=== PATIENT | female | born 1980 | race Caucasian/White ===

== ENCOUNTER 2016-06-01 23:01 | Emergency (ER) | payer OTHER ==
[2016-06-01 23:27] VITALS: TEMP 98.2; BMI 26.7
[2016-06-02 00:18] LABS: URINE APPEARANCE SLCLOUDY; URINE BILIRUBIN NEGATIVE (NEGATIVE); URINE BLOOD NEGATIVE (NEGATIVE); URINE COLOR LTYELLOW; URINE GLUCOSE (UA) NEGATIVE (NEGATIVE); URINE KETONE 1+ (NEGATIVE); URINE LEUK ESTERASE NEGATIVE (NEGATIVE); URINE NITRITE NEGATIVE (NEGATIVE); URINE UROBILINOGEN NEGATIVE E.U./dl (0.2-1.0)
[2016-06-02 00:23] LABS: URINE PROTEIN 1+ (NEGATIVE)
[2016-06-02 00:40] LABS: URINE BACTERIA MODERATE /hpf (NONE SEEN); URINE MUCUS RARE; URINE RBC <1 /hpf (0-3); URINE WBC 3 /hpf (3-5)
[2016-06-02 00:55] LABS: BASOPHIL 0.6 % (0-2.0); EOSINOPHIL 0.5 % (0-4.5); MCH 30.2 pg (25.7-33.7); MCHC 33.6 g/dl (32.0-36.0); MEAN CELL VOLUME 89.7 fl (80-96); MEAN PLT VOLUME 7.8 fl (7.5-11.1); NEUTROPHILS 74.7 % (42.8-82.8); PLATELET COUNT 303 K/MM3 (134-434); RDW 14.1 % (11.6-15.6); WHITE BLOOD COUNT 9.7 K/mm3 (4.0-10.0)
--- NOTE | 2016-06-02 01:03 | PDOC ---
History of Present Illness - General Chief Complaint: Headache Stated Complaint: Headache Time Seen by Provider: 06/01/16 23:08 History Source: Patient, Family Exam Limitations: No Limitations - History of Present Illness Initial Comments: 06/01/16 23:57 35yo Female patient with PmHx: Epilepsy presents to ED c/o blurred vision intermittently x 2 day, with today remaining constant. Patient also c/o h/a, photophobia, nausea. She states she went to see Dr. Gracia ARREDONDO from [facility] . Patient states her medications were recently increase (Lacosamide & Neurotin ER) because she had a seizure in Dr. Fagan office. She denies any recent seizures. LNMP: May 09. Dr. Fagan (Epileptologist) [phone]. Timing/Duration: reports: episodic Severity: Yes: moderate Associated Symptoms: reports: vision changes. denies: denies symptoms, confusion, fatigue, fever/chills, insomnia, loss of consciousness, muscle spasms , nausea/vomiting, numbness in legs/feet, paresthesia, ringing in ears, seizures , sleepy, slurred speech, tingling in legs/feet, trouble walking, weakness, other Past History - Travel Traveled outside of the country in the last 30 days: No Close contact w/someone who was outside of country & ill: No - Past Medical History Allergies/Adverse Reactions: Allergies Allergy/AdvReac Type Severity Reaction Status Date / Time No Known Allergies Allergy Verified 06/01/16 23:24 Home Medications: Ambulatory Orders Eslicarbazepine Acetate [Aptiom] 1,200 mg PO DAILY 06/01/16 Lacosamide [Vimpat -] 100 mg PO BID 06/01/16 Lamotrigine [Lamictal] 550 mg PO DAILY 06/01/16 Hydrocodone/Acetaminophen [[place] 5-325 Tablet] 1 each PO Q6H PRN #20 tablet MDD 4 TABS 06/02/16 Ibuprofen [Motrin -] 600 mg PO Q6H PRN #20 tablet 06/02/16 Metoclopramide HCl [Reglan -] 10 mg PO TID PRN #21 tablet 06/02/16 Seizures: Yes - Psycho/Social/Smoking Cessation Hx Suicidal Ideation: No Smoking History: Never smoked Neuro Specific PMHX - Complaint Specific PMHX Glaucoma: No Herniated Disk: No Laminectomy: No Migraine: No Multiple Sclerosis: No Neuropathy: No TIA: No Review of Systems - Review of Systems Able to Perform ROS?: Yes Is the patient limited Turkmen proficient: No Constitutional: No: Chills, Fever HEENTM: Yes: Blurred Vision. No: Double Vision, Throat Pain Respiratory: No: Cough, Orthopnea, Shortness of Breath, SOB at Rest, Stridor, Wheezing Cardiac (ROS): No: Chest Pain, Palpitations, Syncope ABD/GI: Yes: Nausea. No: Constipated, Diarrhea, Poor Appetite, Poor Fluid Intake, Vomiting : No: Burning, Dysuria, Flank Pain, Hematuria Musculoskeletal: No: Back Pain, Muscle Weakness Integumentary: No: Bruising, Erythema, Rash Neurological: Yes: Headache. No: Numbness, Paresthesia, Seizure, Tingling, Tremors, Weakness, Unsteady Gait, Ataxia, Dizziness All Other Systems: Reviewed and Negative *Physical Exam - Vital Signs Last Vital Signs Temp Pulse Resp BP Pulse Ox 98.2 F 77 18 110/69 100 06/01/16 23:26 06/01/16 23:26 06/01/16 23:26 06/01/16 23:26 06/01/16 23:26 - Physical Exam General Appearance: Yes: Nourished, Appropriately Dressed, Mild Distress. No: Apparent Distress, Moderate Distress, Severe Distress HEENT: positive: EOMI, ARASH, Normal ENT Inspection, Normal Voice, Symmetrical, TMs Normal, Pharynx Normal. negative: Tonsillar Exudate, Tonsillar Erythema, Rhinorrhea, TM Bulging, TM Dull, TM Erythema Neck: positive: Trachea midline, Supple. negative: Stridor, Lymphadenopathy (R) , Lymphadenopathy (L) Respiratory/Chest: positive: Lungs Clear, Normal Breath Sounds. negative: Respiratory Distress, Accessory Muscle Use, Labored Respiration, Rapid RR Cardiovascular: positive: Regular Rhythm, Regular Rate. negative: Edema, JVD, Murmur Gastrointestinal/Abdominal: positive: Normal Bowel Sounds, Soft. negative: Distended, Guarding, Rebound, Tenderness Musculoskeletal: positive: Normal Inspection. negative: CVA Tenderness Extremity: positive: Normal Capillary Refill, Normal Inspection, Normal Range of Motion. negative: Pedal Edema, Swelling Integumentary: positive: Normal Color, Dry, Warm. 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 NML intact, Fully Oriented, Alert, Normal Mood/ Affect, Normal Response, Motor Strength 08/25 ED Treatment Course - LABORATORY CBC & Chemistry Diagram: 06/02/16 00:30 06/02/16 00:30 - ADDITIONAL ORDERS Additional order review: Laboratory Results 06/02/16 00:01 Urine Color Ltyellow Urine Appearance Slcloudy Urine pH 7.0 Ur Specific Prim 1.024 Urine Protein 1+ H Urine Glucose (UA) Negative Urine Ketones 1+ H Urine Blood Negative Urine Nitrite Negative Urine Bilirubin Negative Urine Urobilinogen Negative Ur Leukocyte Esterase Negative Urine RBC <1 Urine WBC 3 Ur Epithelial Cells Rare Urine Bacteria Moderate Urine Mucus Rare Urine HCG, Qual Negative 06/02/16 00:30 RBC 4.08 MCV 89.7 MCHC 33.6 RDW 14.1 MPV 7.8 Neutrophils % 74.7 Lymphocytes % 17.3 Monocytes % 6.9 Eosinophils % 0.5 Basophils % 0.6 - RADIOLOGY Radiology Studies Ordered: Category Date Time Status HEAD CT WITHOUT CONTRAST [CT] Stat CT Scan 06/02/16 00:00 Taken Progress Note - Progress Note Progress Note: PATIENT REPORTS IMPROVEMENT OF SYMPTOMS. WILL F/U WITH PCP. PATIENT WAS ABLE TO TOLERATE LIGHT AND SPEAK IN FULL SENTENCES WITHOUT ACUTE PAIN. *DC/Admit/Observation/Transfer Diagnosis at time of Disposition: Migraine Qualifiers: Migraine type: with aura Status migrainosus presence: without status migrainosus Intractability: not intractable Qualified Code(s): G43.109 - Migraine with aura, not intractable, without status migrainosus - Discharge Dispostion Disposition: HOME Condition at time of disposition: Improved Admit: No - Prescriptions Prescriptions: Ibuprofen [Motrin -] 600 mg PO Q6H PRN #20 tablet PRN Reason: Mild Pain Hydrocodone/Acetaminophen [[place] 5-325 Tablet] 1 each PO Q6H PRN #20 tablet MDD 4 TABS PRN Reason: SEVERE HEADACHE Metoclopramide HCl [Reglan -] 10 mg PO TID PRN #21 tablet PRN Reason: Nausea - Patient Instructions Printed Discharge Instructions: DI for Migraine Additional Instructions: FOLLOW UP WITH YOUR PCP EARLY NEXT WEEK. CALL TO SCHEDULE APPOINTMENT. TAKE MEDICATIONS PRESCRIBED. DO NOT DRIVE, DRINK ALCOHOL, OR OPERATE HEAVY MACHINERY WHILE TAKING [place]. TRY TO IDENTIFY WITH YOUR TRIGGERS OF MIGRAINES. Print Language: UKRAINIAN - Post Discharge Activity Work/School Note: Back to Work
[2016-06-02 01:09] LABS: INR 1.05 (0.82-1.09); PROTHROMBIN TIME (PATIENT) 11.6 SEC (9.98-11.88)
[2016-06-02 01:21] LABS: ALBUMIN 4.1 g/dl (3.4-5.0); ANION GAP 12 (8-16); CO2 25 mmol/L (21-32); CREATININE 0.9 mg/dL (0.55-1.02); GLUCOSE,RANDOM 101 mg/dL (74-106); SGOT/AST 15 U/L (15-37); SGPT/ALT 15 U/L (12-78)
[2016-06-02 01:27] LABS: ALK PHOS 73 U/L (45-117); BILIRUBIN,TOTAL 0.2 mg/dL (0.2-1.0); TOT PROT 7.9 g/dl (6.4-8.2); TROPONIN I < 0.02 ng/ml (0.00-0.05)
[2016-06-02] MEDS ORDERED: METOCLOPRAMIDE HCL INJECTION 10 MG/2 ML VIAL IVPUSH ONE (02:04)
[2016-06-02] MEDS ORDERED: methylPREDNISolone NA SUCC 125 MG/2 ML VIAL IVPB ONE (02:04)
[2016-06-02] MEDS ORDERED: SODIUM CHLORIDE 500 ML IV STA (02:04)
[2016-06-02] MEDS ORDERED: METOCLOPRAMIDE HCL INJECTION 10 MG/2 ML VIAL ONE (02:11)
[2016-06-02] MEDS ORDERED: methylPREDNISolone NA SUCC 125 MG/2 ML VIAL ONE (02:21)
--- NOTE | 2016-06-02 02:55 | PDOC ---
[id number] 100 06/01/16 23:26 06/01/16 23:26 06/01/16 23:26 06/01/16 23:26 06/01/16 23:26 ED Treatment Course - LABORATORY CBC & Chemistry Diagram: 06/02/16 00:30 06/02/16 00:30 - ADDITIONAL ORDERS Additional order review: Laboratory Results 06/02/16 06/02/16 06/02/16 00:30 00:30 00:01 INR 1.05 Sodium 138 Potassium 3.6 Chloride 101 Carbon Dioxide 25 Anion Gap 12 BUN 15 Creatinine 0.9 Creat Clearance w eGFR > 60 Random Glucose 101 Calcium 9.0 Total Bilirubin 0.2 AST 15 ALT 15 Alkaline Phosphatase 73 Creatine Kinase 90 Troponin I < 0.02 Total Protein 7.9 Albumin 4.1 Urine Color Ltyellow Urine Appearance Slcloudy Urine pH 7.0 Ur Specific [place] 1.024 Urine Protein 1+ H Urine Glucose (UA) Negative Urine Ketones 1+ H Urine Blood Negative Urine Nitrite Negative Urine Bilirubin Negative Urine Urobilinogen Negative Ur Leukocyte Esterase Negative Urine RBC <1 Urine WBC 3 Ur Epithelial Cells Rare Urine Bacteria Moderate Urine Mucus Rare Urine HCG, Qual Negative 06/02/16 00:30 RBC 4.08 MCV 89.7 MCHC 33.6 RDW 14.1 MPV 7.8 Neutrophils % 74.7 Lymphocytes % 17.3 Monocytes % 6.9 Eosinophils % 0.5 Basophils % 0.6 - Medications Given in the ED: ED Medications Discontinued Medications Generic Name Dose Route Start Last Admin Trade Name Freq PRN Reason Stop Dose Admin Diphenhydramine HCl 12.5 mg 06/02/16 02:04 06/02/16 02:38 Benadryl Injection - IVPUSH 06/02/16 02:05 12.5 mg ONCE ONE Administration Methylprednisolone Sodium Succinate 125 mg 06/02/16 02:04 06/02/16 02:38 Solu-Medrol - IVPB 06/02/16 02:05 125 mg ONCE ONE Administration Metoclopramide HCl 10 mg 06/02/16 02:04 06/02/16 02:38 Reglan Injection - IVPUSH 06/02/16 02:05 10 mg ONCE ONE Administration Medical Decision Making - Medical Decision Making 06/02/16 02:55 agree with care from MAURISIO Mock *DC/Admit/Observation/Transfer Diagnosis at time of Disposition: Migraine - Discharge Dispostion Disposition: HOME Condition at time of disposition: Improved - Prescriptions Prescriptions: Ibuprofen [Motrin -] 600 mg PO Q6H PRN #20 tablet PRN Reason: Mild Pain Hydrocodone/Acetaminophen [[place] 5-325 Tablet] 1 each PO Q6H PRN #20 tablet MDD 4 TABS PRN Reason: SEVERE HEADACHE Metoclopramide HCl [Reglan -] 10 mg PO TID PRN #21 tablet PRN Reason: Nausea - Referrals Referrals: Harriet Junior MD [Primary Care Provider] - - Patient Instructions Printed Discharge Instructions: DI for Migraine Additional Instructions: FOLLOW UP WITH YOUR PCP EARLY NEXT WEEK. CALL TO SCHEDULE APPOINTMENT. TAKE MEDICATIONS PRESCRIBED. DO NOT DRIVE, DRINK ALCOHOL, OR OPERATE HEAVY MACHINERY WHILE TAKING [place]. TRY TO IDENTIFY WITH YOUR TRIGGERS OF MIGRAINES. Print Language: NICARAGUAN - Post Discharge Activity Work/School Note: Back to Work
[2016-06-02 04:21] VITALS: BP 100/60; PULSE 72
== END 2016-06-02 04:21 | disposition home or self-care (01) ==
LOC: JER 23:01
PROC: 3E033GC Introduction of Other Therapeutic Substance into Peripheral Vein, Percutaneous Approach (ICD-10-PCS; principal; 2016-06-01)
PROC: 3E0333Z Introduction of Anti-inflammatory into Peripheral Vein, Percutaneous Approach (ICD-10-PCS; 2016-06-01)
DX: G43.109 Migraine with aura, not intractable, without status migrainosus (principal)
CPT/HCPCS: 36415; 70450-TC; 80053; 81003; 81015; 82550; 84484; 84703; 85025; 85610; 99283-25